=== PATIENT | female | born 1970 | race Two or more races ===

== ENCOUNTER 2024-07-06 08:13 | Emergency (ER) | payer MEDICAID, SELFPAY ==
[2024-07-06 08:28] VITALS: BP 116/73; PULSE 78; RESP 16; TEMP 36.8; O2SAT 97; BMI 28.4
--- NOTE | 2024-07-06 08:51 | XR_ITS ---
Examination: Hand, right 3 views Technique: Hand AP, oblique, lateral 3 views Date and time of exam: July 06, 2024 0925 hours INDICATIONS: Patient fell today with injury to the hand, hand pain FINDINGS: Severe osteopenia Small radiolucencies mid fifth metacarpal, clinical correlation advised No dislocation IMPRESSION: Recommend 1-2 day follow-up films to exclude nondisplaced fracture fifth metacarpal
--- NOTE | 2024-07-06 08:51 | XR_ITS ---
Examination: Forearm, left, 2 views. Technique: Forearm, AP, lateral 2 views Date and time of exam: July 06, 2024 0925 hours INDICATIONS: Patient fell today with injury to the forearm, forearm pain. FINDINGS: No acute fracture No elbow effusion No dislocation IMPRESSION: No acute fracture
--- NOTE | 2024-07-06 10:28 | PD.EDHAND ---
Upper Extremity Injury RME/HPI General Chief Complaint: Hand/Wrist Problems Stated Complaint: LEFT HAND/ARM INJURY Time Seen by Provider: 07/06/24 08:17 Arrival date/time: 07/06/24 08:13 53-year-old female presents to the emergency department today complains of left hand pain which radiates up her left arm patient reports that she accidentally bumped her hand causing her to have pain. Limitations: no limitations Related Data Previous Rx's ?Medication ?Instructions ?Recorded ibuprofen 600 mg tablet 600 mg PO Q6H #30 tabs 07/06/24 Allergies Allergy/AdvReac Type Severity Reaction Status Date / Time Penicillins Allergy Verified 07/06/24 08:16 Review of Systems Review of Systems Systems Reviewed: All systems reviewed, normal except as documented Constitutional Constitutional: Reports system reviewed and no additional complaints, except as documented, Denies fever(s) and Denies headache(s) Eyes Eyes: Reports system reviewed and no additional complaints, except as documented and Denies blurry vision ENT Ears, Nose, Mouth, and Throat: Reports system reviewed and no additional complaints, except as documented, Denies headache(s), Denies nasal congestion and Denies nasal discharge Cardiovascular Cardiovascular: Reports system reviewed and no additional complaints, except as documented, Denies chest pain and Denies dyspnea Respiratory Respiratory: Reports system reviewed and no additional complaints, except as documented, Denies chest congestion, Denies cough and Denies dyspnea Gastrointestinal Gastrointestinal: Reports system reviewed and no additional complaints, except as documented and Denies abdominal pain Musculoskeletal Musculoskeletal: Reports system reviewed and no additional complaints, except as documented, Reports arthralgias and Denies deformity Integumentary/Breasts Skin/Breast: Reports system reviewed and no additional complaints, except as documented and Denies rash Neurologic Neurologic: Reports system reviewed and no additional complaints, except as documented, Reports as per HPI and Denies headache(s) Past Medical History Social History SMOKING STATUS: Never smoker ED Exam General Limitations: Present no limitations General appearance: Present alert and in no apparent distress Head Head exam: Present atraumatic, normocephalic and normal inspection Eye Eye exam: Present normal appearance, PERRL and EOMI; Absent conjunctival injection ENT ENT exam: Present normal exam, normal oropharynx and mucous membranes moist Neck Neck exam: Present normal inspection, full ROM and trachea midline Chest Chest inspection: Present normal inspection and symmetric chest wall rise Respiratory Respiratory exam: Present normal lung sounds bilaterally Cardiovascular Cardiovascular exam: Present regular rate, normal rhythm and normal heart sounds Abdominal Exam Abdominal exam: Present soft and normal bowel sounds Extremities Exam Extremities exam: Present full ROM, tenderness, normal capillary refill and joint swelling Back Exam Back exam: Present normal inspection and full ROM Neurological Exam Neurological exam: Present alert, oriented X3 and CN II-XII intact Psychiatric Psychiatric exam: Present normal affect and normal mood Skin Skin exam: Present warm, dry, intact and normal color Course Quality Measures none Orders Category Date Time Status XR forearm LT 2V Stat Exams 07/06/24 08:51 Completed XR hand comp LT min 3V Stat Exams 07/06/24 08:51 Completed Vital Signs Vital signs: Vital Signs Temperature 98.3 F 07/06/24 08:28 Pulse Rate 78 07/06/24 08:28 Respiratory Rate 16 07/06/24 08:28 Blood Pressure 116/73 07/06/24 08:28 Pulse Oximetry (%) 97 07/06/24 08:28 Oxygen Delivery Method Room Air 07/06/24 08:28 O2 saturation 97% room air within normal limits Extremity Injury MDM Narrative MDM Narrative:: 53-year-old female presents to the emergency department today complains of left hand pain which radiates up her left arm patient reports that she accidentally bumped her hand causing her to have pain. On exam patient has tenderness left hand no deformity noted Per radiologist there is a radiolucency left hand patient does not have any pain over this region but does report generalized pain to the hand I suspect patient may have occult fracture which needs to have a repeat x-ray in 2 to 3 days Patient instructed have repeat imaging in 2 to 3 days to rule out fracture Patient data External records reviewed:: [facility] previous records Clinical information provided by:: patient Social determinants that could affect healthcare access:: none Patient has the following chronic illnesses:: See history history How is presenting disease/condition affected by chronic disease/condition?: caused by Evaluation data The following diagnostics were reviewed and interpreted by me:: radiology exam(s) Lab and/or radiology exams considered but not ordered:: Radiology obtain Interpretation Summary: Reviewed by me Medications / Prescriptions Medications or Prescriptions considered but not ordered:: Given Medication administrations:: Given Consultations Consultation(s) initiated? (list below): No Diagnosis Upper Extremity Injury Differential Diagnosis: sprain and strain of wrist, fracture of wrist and fracture of humerus Most likely diagnosis given after review of the tests above:: Contusion of hand Admission Indicated Admission indicated?: not indicated Admission Request Was there a request for admission?: No Disposition Plan Disposition Plan: Discharge Discharge Attestation Discharge Attestation: The patient and all family members were given an opportunity to ask questions and understood the discharge instructions. Discharge instructions specifically effects, indications for sooner follow up or return to the emergency department, and the expected course of current diagnosis. Patient condition: Stable Discharge Plan Plan Patient Disposition: HOME (Self Care) Disposition Comment: stable Prescriptions/Referrals Prescriptions/Med Rec: New ibuprofen 600 mg tablet 600 mg PO Q6H Qty: 30 0RF Referrals: Dawna Jesus FNP [Primary Care Provider] - 07/07/24 Problem List Clinical Impression: Contusion of hand, left Patient/Caregiver Discharge Instructions Education Materials: Bone Contusion Additional Instructions: Please return in 2 to 3 days for repeat x-ray of the hand for worsening symptoms return immediately Print Language: Hong Konger Stand Alone Forms: Melanie Award Info., Patient Portal Info Letter VIJAY/HANK Supervising Physician SASKIA Supervising Physician: Dr lei
== END 2024-07-06 10:34 | disposition home or self-care (01) ==
PROVIDERS: Emergency Provider Emergency Medicine; PCP Nurse Practitioner Family
DX: S60.222A Contusion of left hand, initial encounter (principal); X58.XXXA Exposure to other specified factors, initial encounter
CPT/HCPCS: 73090; 73130; 99283

== ENCOUNTER 2024-07-09 10:09 | Emergency (ER) | payer MEDICAID, SELFPAY ==
[2024-07-09 10:15] VITALS: BP 126/80; PULSE 75; RESP 17; TEMP 36.7; O2SAT 98; BMI 28.3
--- NOTE | 2024-07-09 10:25 | PD.EDADULT ---
ED General RME/HPI General Chief complaint: General Adult/Misc Complain Stated complaint: RETURN FOR XRAY REPEAT Time Seen by Provider: 07/09/24 10:11 Arrival date/time: 07/09/24 10:09 This is a 53-year-old female that recently had cataract surgery so she got up at night approximately 4 days ago and slipped and hurt her right hand. Patient was seen here in the emergency room and there was a suspicion for an acute fracture. Today patient comes back for repeat x-ray of her right hand. Related Data Previous Rx's ?Medication ?Instructions ?Recorded ibuprofen 600 mg tablet 600 mg PO Q6H #30 tabs 07/06/24 Allergies Allergy/AdvReac Type Severity Reaction Status Date / Time Penicillins Allergy Verified 07/06/24 08:16 Course Orders Category Date Time Status XR hand LT 2V Stat Exams 07/09/24 10:26 Completed Vital Signs Vital signs: Vital Signs Temperature 98.1 F 07/09/24 10:15 Pulse Rate 75 07/09/24 10:15 Respiratory Rate 17 07/09/24 10:15 Blood Pressure 126/80 07/09/24 10:15 Pulse Oximetry (%) 98 07/09/24 10:15 Oxygen Delivery Method Room Air 07/09/24 10:15 Discharge Plan Plan Patient Disposition: HOME (Self Care) Patient condition on transfer: Stable Prescriptions/Referrals Prescriptions/Med Rec: No Action ibuprofen 600 mg tablet 600 mg PO Q6H Qty: 30 0RF Referrals: Dawna Jesus FNP [Primary Care Provider] - In 1 week Problem List Clinical Impression: Contusion of hand Patient/Caregiver Discharge Instructions Discharge Activity: activity as tolerated Education Materials: Bruises (Contusions) Additional Instructions: Follow up with primary provider in 1-2 days. Come back to ED if symptoms change or worsen Print Language: Nepali Stand Alone Forms: Melanie Award Info., Patient Portal Info Letter VIJAY/HANK Supervising Physician VIJAY/HANK Supervising Physician: camden [place] Narrative MDM hospital course (for use when minimal MDM required): Left hand x-ray done: FINDINGS: Moderate osteopenia No acute fracture No dislocation IMPRESSION: No acute fracture Today patient had an xray. There was no acute fracture seen. Exam appeared unremarkable. I explained to patient at length that if there was continued pain to this area or worsened to come back to ED or see primary provider for more xrays or further testing such as CT scan or MRI. X rays are not perfect and sometimes serial films needed. Patient verbalized understanding. Patient states they will follow up with primary provider in 1-2 days or come back to ED if symptoms change or worsen.
--- NOTE | 2024-07-09 10:26 | XR_ITS ---
Examination: Hand, left 2 views Technique: Hand AP, lateral 2 views Date and time of exam: July 09, 2024 1037 hours Comparison July 06, 2024 INDICATIONS: Patient fell July 06, 2024 with injured hand, hand pain FINDINGS: Moderate osteopenia No acute fracture No dislocation IMPRESSION: No acute fracture
--- NOTE | 2024-07-09 11:07 | PC.NURSE ---
Called [employer]vac project engineer, spoke with vernon regarding contacting radiologist, Dr. Boles regarding reading xray, per Vernon she will contact Radiologist
== END 2024-07-09 13:00 | disposition home or self-care (01) ==
PROVIDERS: Emergency Provider Emergency Medicine; PCP Nurse Practitioner Family
DX: S60.222A Contusion of left hand, initial encounter (principal); W01.0XXA Fall on same level from slipping, tripping and stumbling without subsequent striking against object, initial encounter
CPT/HCPCS: 73120; 99283

== ENCOUNTER → 2024-12-08 | Outpatient (CLI) | payer BC, SELFPAY ==
--- NOTE | 2024-12-08 10:13 | XR_ITS ---
Examination: Foot, right, 3 views Technique: AP, oblique, lateral views foot, 3 views Date and time of exam: December 08, 2024, 1022 hours INDICATIONS: History fracture fifth metatarsal 2 months ago. FINDINGS: Spiral fracture distal fifth metatarsal shaft 2 mm offset at the fracture site Early healing IMPRESSION: Early healing fracture fifth metatarsal, I do not have prior films for comparison
== END | disposition home or self-care (01) ==
LOC: SDIM 10:04
PROVIDERS: PCP Family Medicine; Referring Provider Orthopaedic Surgery; Visit Provider Orthopaedic Surgery
DX: S92.351A Displaced fracture of fifth metatarsal bone, right foot, initial encounter for closed fracture (principal); X58.XXXA Exposure to other specified factors, initial encounter
CPT/HCPCS: 73630

== ENCOUNTER → 2025-01-12 | Outpatient (CLI) | payer BC, SELFPAY ==
--- NOTE | 2025-01-12 10:25 | XR_ITS ---
Examination: Foot, right, 3 views Technique: AP, oblique, lateral views foot, 3 views Date and time of exam: January 12, 2025, 10:30 a.m., comparison December 08, 2024 INDICATIONS: History fracture fifth metatarsal July 06, 2024. FINDINGS: Partial healing fracture distal fifth metatarsal Adequate alignment Prominent osteopenia IMPRESSION: Partial healing fracture fifth metatarsal with satisfactory alignment
== END | disposition home or self-care (01) ==
PROVIDERS: PCP Family Medicine; Referring Provider Orthopaedic Surgery; Visit Provider Orthopaedic Surgery
DX: X58.XXXD Exposure to other specified factors, subsequent encounter (principal)
CPT/HCPCS: 73630

== ENCOUNTER → 2025-02-23 | Outpatient (CLI) | payer BC, SELFPAY ==
--- NOTE | 2025-02-23 | XR_ITS ---
Examination: Foot, right, 3 views Technique: AP, oblique, lateral views foot, 3 views Date and time of exam: February 23, 2025, 1326 hours INDICATIONS: Patient fell 3 months ago with injury to the foot, acute fracture fifth metatarsal July 06, 2024. FINDINGS: Severe osteopenia Significant healing and stable alignment fracture fifth metatarsal No new fractures IMPRESSION: Significant healing and stable alignment fracture fifth metatarsal
== END | disposition home or self-care (01) ==
PROVIDERS: PCP Family Medicine; Referring Provider Orthopaedic Surgery; Visit Provider Orthopaedic Surgery
DX: S92.354D Nondisplaced fracture of fifth metatarsal bone, right foot, subsequent encounter for fracture with routine healing (principal); W19.XXXD Unspecified fall, subsequent encounter
CPT/HCPCS: 73630